=== PATIENT | male | born 1985 | race Native Hawaiian/Other Pacific Islander ===

== ENCOUNTER 2019-01-23 10:12 | Emergency (ER) | payer OTHER ==
[2019-01-23] MEDS ORDERED: SOLU-Medrol IV ONE (10:53)
[2019-01-23] MEDS ORDERED: BENADRYL IV ONE (10:53)
[2019-01-23] MEDS ORDERED: PEPCID IV ONE (10:53)
--- NOTE | 2019-01-23 11:17 | XRay Report ---
Soft tissue neck: History: Left neck pain after eating. Findings: The laryngeal and tracheal air column is normal. Normal prevertebral soft tissue. Suspicion of mild cervical spondylosis lower cervical spine. Impression: Essentially negative soft tissue of the neck.
--- NOTE | 2019-01-23 11:53 | Emergency Department Report ---
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 Patient states that he has had a mild cough for approximately is nonproductive and he was eating a [employer] sandwich today and felt some pain in the left neck. Patient felt as though his throat was closing and he started hyperventilating. Patient was noted on arrival to have a complaint of bilateral hand numbness and a panic sensation. Patient has even [employer] before with no issue. Severity scale (0 -10): 0 - Related Data Previous Rx's Medication Instructions Recorded Last Taken Type prednisoLONE [Prednisolone] 45 mg PO DAILY 5 Days solution 01/23/19 Unknown Rx Allergies Allergy/AdvReac Type Severity Reaction Status Date / Time No Known Allergies Allergy Unverified 01/23/19 10:13 ED Review of Systems ROS: Stated complaint: SOLANGE Other details as noted in HPI Comment: All other systems reviewed and negative ED Past Medical Hx - Past Medical History Hx Asthma: Yes - Surgical History Past Surgical History?: No - Social History Smoking Status: Never Smoker Substance Use Type: None - Medications Home Medications: Home Medications Medication Instructions Recorded Confirmed Last Taken Type prednisoLONE [Prednisolone] 45 mg PO DAILY 5 Days solution 01/23/19 Unknown Rx ED Physical Exam - General Limitations: Language Barrier General appearance: alert, anxious - Head Head exam: Present: atraumatic, normocephalic - Eye Eye exam: Present: normal appearance, PERRL, EOMI - ENT ENT exam: Present: normal exam, normal orophraynx, mucous membranes moist - Neck Neck exam: Present: normal inspection. Absent: tenderness (patient subjectively states he has a foreign body sensation to the left side of his throat however there are no physical findings in this area) - Respiratory Respiratory exam: Present: normal lung sounds bilaterally. Absent: respiratory distress, wheezes, rales, rhonchi - Cardiovascular Cardiovascular Exam: Present: regular rate, normal rhythm. Absent: systolic murmur, diastolic murmur, rubs, gallop - GI/Abdominal GI/Abdominal exam: Present: soft, normal bowel sounds. Absent: distended, tenderness, guarding, rebound - Rectal Rectal exam: Present: deferred - Extremities Exam Extremities exam: Present: normal inspection - Back Exam Back exam: Present: normal inspection - Neurological Exam Neurological exam: Present: alert, oriented X3 - Psychiatric Psychiatric exam: Present: normal affect, normal mood - Skin Skin exam: Present: warm, dry, intact, normal color. Absent: rash ED Course Vital Signs 01/23/19 10:18 Temperature 98.3 F Pulse Rate 85 Respiratory 20 Rate Blood Pressure 122/77 [Right] O2 Sat by Pulse 99 Oximetry ED Medical Decision Making - Radiology Data [facility] [address] [place] [address] XRay Report Signed Patient: ALYSSA PINEDA MR#: [id number] : 1985 Acct:[id number] Age/Sex: 33 / M ADM Date: 01/23/19 Loc: ED Attending Dr: Ordering Physician: ROB SULLIVAN MD Date of Service: 01/23/19 Procedure(s): XR neck soft tissue Accession Number(s): [id number] cc: ROB SULLIVAN MD Fluoro Time In Minutes: Soft tissue neck: History: Left neck pain after eating. Findings: The laryngeal and tracheal air column is normal. Normal prevertebral soft tissue. Suspicion of mild cervical spondylosis lower cervical spine. Impression: Essentially negative soft tissue of the neck. Transcribed By: PTP Dictated By: SIMRAN BARTHOLOMEW MD Electronically Authenticated By: SIMRAN BARTHOLOMEW MD Signed Date/Time: 01/23/19 1056 DD/ 10 - Medical Decision Making Patient was given meds for allergic reaction however I do believe the patient likely had a small scratch to the esophagus on the left or the posterior pharynx on the left which then caused him to have anxiety type symptoms. Patient after receiving Ms. specifically the Benadryl and steroids he states he is feeling much improved. He is able to swallow his saliva is not in any respiratory distress. Patient be discharged home with symptomatically. Critical care attestation.: If time is entered above; I have spent that time in minutes in the direct care of this critically ill patient, excluding procedure time. ED Disposition Clinical Impression: Esophageal abrasion, Anxiety reaction Disposition: DC-01 TO HOME OR SELFCARE Is pt being admited?: No Does the pt Need Aspirin: No Condition: Stable Instructions: Anxiety (ED) Additional Instructions: Please take 2 teaspoons of liquid Benadryl every 6 hours for the next 3 days Time of Disposition: 11:53 Print Language: SWISS
[2019-01-23 12:24] VITALS: BP 123/80
== END 2019-01-23 12:24 | disposition home or self-care (01) ==
LOC: ED 10:12
DX: S27.818A Other injury of esophagus (thoracic part), initial encounter (principal); F41.1 Generalized anxiety disorder; J45.909 Unspecified asthma, uncomplicated; X58.XXXA Exposure to other specified factors, initial encounter; Y93.89 Activity, other specified; Y92.89 Other specified places as the place of occurrence of the external cause; Y99.8 Other external cause status
CPT/HCPCS: 70360; 96374; 96375; 99283; J1200; J2930